=== PATIENT | female | born 1970 | race Two or more races ===

== ENCOUNTER 2020-08-07 23:15 | Emergency (ER) | payer OTHER ==
[~2020-08-07] VITALS: Ht 165.1 cm; Wt 86.2 kg
[2020-08-08 01:50] VITALS: BP 144/86
== END 2020-08-08 02:07 | disposition home or self-care (01) ==
LOC: ER 23:17
DX: S09.8XXA Other specified injuries of head, initial encounter (principal); F17.210 Nicotine dependence, cigarettes, uncomplicated; W07.XXXA Fall from chair, initial encounter; Y93.89 Activity, other specified; Y92.89 Other specified places as the place of occurrence of the external cause; Y99.8 Other external cause status
CPT/HCPCS: 70450; 72125